=== PATIENT | male | born 1990 | race Caucasian/White ===

== ENCOUNTER 2020-10-12 10:45 | Emergency (ER) | payer BC, OTHER ==
[2020-10-12] MEDS ORDERED: ONDANSETRON 4 MG/2 ML VIAL ONE ×2 (11:09→11:26)
[2020-10-12 11:19] VITALS: TEMP 98.6; BMI 25.1
[2020-10-12] MEDS ORDERED: KETOROLAC TROMETHAMINE 30 MG/1 ML VIAL IVPUSH ONE (11:20)
[2020-10-12] MEDS ORDERED: ONDANSETRON 4 MG/2 ML VIAL IVPUSH ONE (11:20)
[2020-10-12 11:22] VITALS: BP 127/65; PULSE 69
[2020-10-12] MEDS ORDERED: KETOROLAC TROMETHAMINE 30 MG/1 ML VIAL ONE (11:26)
[2020-10-12] MEDS ORDERED: HALOPERIDOL LACTATE 5 MG/ML IM ONE (11:43)
[2020-10-12] MEDS ORDERED: HALOPERIDOL LACTATE 5 MG/ML ONE (11:46)
[2020-10-12 12:34] LABS: BASO % 0.2 % (0-2.0); EOS % 0.3 % (0-4.5); HEMATOCRIT 41.1 % (35.4-49); HEMOGLOBIN 13.7 GM/dL (11.7-16.9); LYMPH % 10.5 % (8-40); MCH 30.3 pg (25.7-33.7); MCHC 33.3 g/dl (32.0-35.9); MEAN CELL VOLUME 91.1 fl (80-96); MEAN PLT VOLUME 9.3 fl (7.5-11.1); MONO % 10.3 % (3.8-10.2); NEUT % 78.7 % (42.8-82.8); PLATELET COUNT 196 K/MM3 (134-434); RBC 4.51 M/mm3 (4.00-5.60); RDW 12.9 % (11.9-15.9); WHITE BLOOD COUNT 12.8 K/mm3 (4.0-10.0)
[2020-10-12 12:42] LABS: URINE APPEARANCE CLEAR; URINE BILIRUBIN NEGATIVE (NEGATIVE); URINE COLOR YELLOW; URINE GLUCOSE (UA) NEGATIVE (NEGATIVE); URINE KETONE NEGATIVE (NEGATIVE); URINE LEUK ESTERASE NEGATIVE (NEGATIVE); URINE NITRITE NEGATIVE (NEGATIVE); URINE PROTEIN NEGATIVE (NEGATIVE); URINE UROBILINOGEN 0.2 mg/dL (0.2-1.0)
[2020-10-12 13:10] LABS: POTASSIUM 4.3 mmol/L (3.5-5.1)
[2020-10-12 13:12] LABS: BLOOD UREA NITROGEN 18.7 mg/dL (7-18); CALCIUM 9.5 mg/dL (8.5-10.1)
[2020-10-12 13:16] LABS: CREATININE 1.2 mg/dL (0.55-1.3)
[2020-10-12 13:17] LABS: BILIRUBIN,TOTAL 0.7 mg/dL (0.2-1); TOT PROT 6.9 g/dl (6.4-8.2)
== END 2020-10-12 12:45 | disposition left against medical advice (07) ==
LOC: JER 10:45
PROC: 3E0333Z Introduction of Anti-inflammatory into Peripheral Vein, Percutaneous Approach (ICD-10-PCS; principal; 2020-10-12)
PROC: 3E033GC Introduction of Other Therapeutic Substance into Peripheral Vein, Percutaneous Approach (ICD-10-PCS; 2020-10-12)
PROC: 3E023NZ Introduction of Analgesics, Hypnotics, Sedatives into Muscle, Percutaneous Approach (ICD-10-PCS; 2020-10-12)
DX: M54.5 Low back pain (principal); R11.2 Nausea with vomiting, unspecified
CPT/HCPCS: 36415; 80053; 81003; 83690; 85025; 87086; 93005; 93010; 99285-25